=== PATIENT | male | born 1960 | race Caucasian/White ===

== ENCOUNTER 2017-05-16 09:01 | Inpatient (IN) | payer OTHER ==
[2017-04-11 16:06] VITALS: BMI 11.0
--- NOTE | 2017-05-15 11:53 | HISTORY & PHYSICAL EXAMINATION ---
DATE OF ADMISSION: 05/16/2017 CHIEF COMPLAINT: Right knee pain. HISTORY OF PRESENT ILLNESS: The patient is a 56-year-old gentleman with known osteoarthritis about his right knee. He had an old femur fracture which has contributed to his posttraumatic arthritis. He is an incarcerated individual. He has pain and disability with activities of daily living. He has pain with prolonged weightbearing and standing activities. Due to ongoing pain and disability, he desires to proceed with right total knee arthroplasty. PAST MEDICAL HISTORY: Second degree AV block, Mobitz type 2, cardiac pacemaker, hypertension, nicotine dependence, hyperlipidemia, COPD, obstructive sleep apnea. PAST SURGICAL HISTORY: Pacemaker placement. MEDICATIONS: Acetaminophen 325 mg 2 tablets 3 times daily p.r.n. Celecoxib 200 mg twice daily, lisinopril 20 mg daily, nitroglycerin 0.4 mg sublingual p.r.n. chest pain, pravastatin 20 mg at bedtime. ALLERGIES: No known drug allergies. SOCIAL HISTORY AND REVIEW OF SYSTEMS: Noncontributory. PHYSICAL EXAMINATION: GENERAL: Well-nourished, well-developed male who appears his stated age. HEENT: Normocephalic, atraumatic, extraocular movements intact, oropharynx pink and moist. NECK: Supple without adenopathy. LUNGS: Diminished heart sounds, otherwise clear. HEART: Regular rate and rhythm. He has a palpable pacemaker in the right subclavian region. ABDOMEN: Soft, nontender, nondistended. EXTREMITIES: The upper extremity within normal limits. The right knee has a varus alignment. He complains primarily of medial compartment pain. He has mild crepitus with range of motion. His range of motion from 0-120 degrees. X-RAYS: X-rays were reviewed. He has a varus-aligned knee. He has severe medial compartment arthritis with large osteophytes, bone on bone arthritis. He also has moderate to severe osteoarthritis about the right patellofemoral joint. ASSESSMENT: Right knee degenerative joint disease. PLAN: Risks versus benefits were discussed and consent was obtained. Will proceed with right total knee arthroplasty upon preoperative workup and medical clearance.
[~2017-05-16] VITALS: Ht 166.4 cm; Wt 116.0 kg
[2017-05-16] VITALS (7 sets, daily range): BP systolic 102–145; BP diastolic 58–92; PULSE 68–75; TEMP 34.8–37; O2SAT 94–98; Ht 166.4 cm; Wt 116.0 kg
--- NOTE | 2017-05-16 06:54 | History & Physical Bridge Note ---
H&P Re-Evaluation Bridge Note: I have examined the patient, reviewed the History & Physical and in the interval since the performance of the History & Physical I have noted the following changes of clinical significance: No changes noted
[~2017-05-16 09:01] MED LIST: ACET-1311 PO; ACETAMINOPHEN 500 MG TAB PO SCH; ASPI81TA28 PO; BUPIVACAINE 0.5 % 5 MG/1 ML PF 10ML VIAL ONE; BUPIVACAINE/EPINEPHRINE 0.25% 1:200,000 30 ML VIAL ONE; CEFAZOLIN 1000MG/55 ML D5W 55 ML IV SCH; CLB/200 PO; CeleBREX 200 MG CAP PO SCH; DEXAMETHASONE 4 MG TAB PO SCH; FAMOTIDINE 20 MG TAB PO SCH; GABAPENTIN 300 MG CAP PO SCH; LACTATED RINGER'S 1000ML 1,000 ML IV SCH; LACTATED RINGER'S 1000ML IV SCH; LACTATED RINGER'S 500 ML IV SCH; LISI20TA3 PO; METOCLOPRAMIDE HCL 10 MG TAB PO SCH; NTRSL3 UT; PRAV20TA PO; ROPIVACAINE 5MG/ML 30 ML 150 MG, BUPIVACAINE/EPINEPHR 0.5% MPF 30 ML, KETOROLAC TROMETH... INFIL SCH
[2017-05-16] MEDS ORDERED: ONDANSETRON INJ 2 MG/ML 2 ML VIAL IV PRN ×2 (10:00→15:00)
[2017-05-16] MEDS ORDERED: HYDROmorphone INJ 2 MG/ML SYR/VIAL IV PRN (10:00)
[2017-05-16] MEDS ORDERED: EpHEDrine SULFATE INJ 50 MG/ML AMP IV PRN (10:00)
[2017-05-16] MEDS ORDERED: LABETALOL HCL IV 5 MG/ML 20ML IV PRN (10:00)
[2017-05-16] MEDS ORDERED: PHENYLEPHRINE 100MCG/ML 5ML SYR IV PRN (10:00)
[2017-05-16] MEDS ORDERED: NALOXONE HCL 0.4 MG/1 ML VIAL/CARP IV PRN (10:00)
[2017-05-16] MEDS ORDERED: FENTANYL CITRATE INJ 50 MCG/1 ML 2 ML VIAL IV PRN (10:00)
[2017-05-16] MEDS ORDERED: MEPERIDINE HCL 25 MG/ML CARP IV PRN (10:00)
[2017-05-16] MEDS ORDERED: FLUMAZENIL 0.1 MG/1 ML 10 ML VIAL IV PRN (10:00)
[2017-05-16] MEDS ORDERED: ATROPINE SULFATE 0.1 MG/ML 5ML SYR IV PRN (10:00)
[2017-05-16] MEDS ORDERED: MIDAZOLAM HCL 1 MG/ML 2ML VIAL ONE (10:17)
[2017-05-16] MEDS ORDERED: POVIDONE-IODINE OP SOLN 30 ML BTL ONE (11:45)
[2017-05-16] MEDS ORDERED: BACITRACIN 50000 UNIT VIAL ONE (11:45)
[2017-05-16] MEDS ORDERED: KETAMINE HCL INJ 50 MG/ML 10 ML VIAL ONE (12:59)
[2017-05-16] MEDS ORDERED: CEFAZOLIN SOD 1 GM VIAL ONE (13:12)
[2017-05-16] MEDS ORDERED: PROPOFOL IV EMULSION 10 MG/ML 20 ML VIAL IV ONE ×5 (13:12→14:17)
[2017-05-16] MEDS ORDERED: LIDOCAINE HCL 2% 2 ML VIAL (20MG/ML) ONE (13:12)
[2017-05-16] MEDS ORDERED: SODIUM CHLORIDE 0.9% INJ 10 ML VIAL ONE (13:12)
--- NOTE | 2017-05-16 14:17 | [facility] Post Operative Brief Note ---
Immediate Operative Summary Operative Date May 16, 2017. Pre-Operative Diagnosis Right knee degenerative joint disease Post-Operative Diagnosis same Procedure(s) Performed Right Total Knee Arthroplasty Surgeon Dr. Riddle Branch General Manager Surgeon(s) Alexander Jiménez Pa-C Estimated Blood Loss 20 ML Findings severe djd Specimens A. right knee bone and tissue Complication(s) None Disposition Recovery Room / PACU
[2017-05-16] MEDS ORDERED: ALUMINUM/MAGNESIUM/SIMETH (MAALOX MAX) 30 ML UDC PO PRN (15:00)
[2017-05-16] MEDS ORDERED: METOCLOPRAMIDE HCL INJ 5 MG/ML 2 ML VIAL IV PRN (15:00)
[2017-05-16] MEDS ORDERED: ZOLPIDEM TARTRATE 5 MG TAB PO PRN (15:00)
[2017-05-16] MEDS ORDERED: NITROGLYCERIN 0.3 MG/1 TAB 100 TAB BTL UT PRN (15:00)
[2017-05-16] MEDS ORDERED: MAGNESIUM HYDROXIDE SUSP 30 ML UDC PO PRN (15:00)
[2017-05-16] MEDS ORDERED: TAMSULOSIN HCL 0.4 MG CAP PO PRN (15:00)
[2017-05-16] MEDS ORDERED: MoRPHine SULFATE 2 MG/ML CARP IV PRN (15:00)
--- NOTE | 2017-05-16 15:11 | DIAGNOSTIC IMAGING REPORT ---
RIGHT KNEE 1 OR 2 VIEWS ROUTINE CLINICAL HISTORY: Postop examination COMPARISON: None. DISCUSSION: There is an old healed femoral fracture. There are postsurgical changes of a total right knee arthroplasty with patellar resurfacing. The femoral and tibial components appear well seated. There are overlying skin mumtaz and surgical drains. There is air within soft tissues consistent with recent surgery. IMPRESSION: Postsurgical changes of a total right knee arthroplasty. Electronically signed by: Choco Colon M.D. 05/16/2017 3:09 PM Dictated Date/Time: 05/16/2017 3:08 PM
--- NOTE | 2017-05-16 15:40 | Anesthesiology Progress Note ---
Anesthesia Post Op Note Date & Time May 16, 2017 at 15:39 Vital Signs Pain Intensity: 0 Vital Signs Past 12 Hours Date Time Temp Pulse Resp B/P (MAP) Pulse Ox O2 Delivery O2 Flow Rate FiO2 05/16/17 15:30 36.8 68 16 110/64 96 Nasal Cannula 2 05/16/17 15:20 71 16 109/61 96 Nasal Cannula 2 05/16/17 15:10 72 16 106/72 96 Nasal Cannula 2 05/16/17 15:00 65 16 107/60 99 Mask 8 05/16/17 14:50 37.1 74 16 108/64 98 Mask 8 05/16/17 09:42 36.9 68 20 145/92 94 Room Air Notes Mental Status: alert / awake / arousable, participated in evaluation Pt Amnestic to Procedure: Yes Nausea / Vomiting: adequately controlled Pain: adequately controlled Airway Patency, RR, SpO2: stable & adequate BP & HR: stable & adequate Hydration State: stable & adequate Anesthetic Complications: no major complications apparent
--- NOTE | 2017-05-16 15:52 | OPERATIVE REPORT ---
DATE OF OPERATION: 05/16/2017 PREOPERATIVE DIAGNOSIS: Degenerative joint disease, right knee. POSTOPERATIVE DIAGNOSIS: Degenerative joint disease, right knee. PROCEDURE: OrthAlign, right total knee. ORTHALIGN INDICATION: Previous femoral malunion. SURGEON: Dr. Riddle. PERFORATOR TYPIST: Alexander Jiménez PA-C. ANESTHESIA: Spinal. COMPLICATIONS: None. OPERATION AND FINDINGS: Following induction of adequate spinal anesthesia, the patient's right leg was prepped and draped in usual sterile manner. The limb was exsanguinated with an Esmarch bandage and tourniquet was inflated to 350 mmHg. A longitudinal incision was made. Subcutaneous tissue was sharply dissected. Electrocautery was used for hemostasis as well as Aquamantys. Median parapatellar incision was made. The patella was everted and some fat pad was removed to aid in this eversion and the knee was flexed. The medial face of the tibia was cleared of soft tissue using electrocautery and then a Grigsby and blunt Hohmann was used to retract this. Next, the OrthWoofound tibial computer was attached to the anterior aspect of the femur and adjusted for posterior slope and varus-valgus tilt. Computer was utilized to set the proximal tibial cutting guide and the proximal tibia cut was made using an oscillating saw. This device was removed and the tibial fragment was removed in its entirety. Next, attention was turned to the femur where a spiral pin was placed just above, anterior to the intercondylar notch. The distal femoral cutting jig was placed with the computer and with the appropriate manipulation of varus-valgus and flexion-extension, the distal femoral cutting jig was pinned into position. Computer was removed and the distal femoral cut was made and an 11 mm distal cut was chosen as the patient had a preoperative flexion contracture. The femur was measured, a size 6 femur was chosen as the size to be used. The distal femoral cut was made using an oscillating saw with no notching. The intercondylar notch was prepared. Meniscal remnants were removed using forceps and a knife and Aquamantys was used to gain hemostasis posteriorly. A trial femoral component was impacted into position. Trial reduction was carried out and the size 11 tibial component was chosen the size to be used. The proximal tibia had been prepared using the punch. The trials were all removed. The patella was reamed and a 39 patella was chosen the size to be used. Prior to removal of the trials, knee was taken through a full range of motion and was found to be well centralized patella with no tendency for lateral subluxation. The joint mix was injected posteriorly as well as subperiosteally and pericapsularly and the wound was thoroughly irrigated with pulsatile irrigation. Cement was mixed. Components were cemented into position. All excess cement was removed. The knee was held in extension while cement hardened and the patellar clamp remained on the patella until cement hardened. The wound was irrigated one last time and Betadine soak was used prior to closure. Hemostasis was obtained after letting down the tourniquet and the wound was closed over a Hemovac using #1 Vicryl hgorup-wy-ytrli sutures, subcutaneous tissue was closed using 0 Dexon, skin was closed with mumtaz. Sterile dressing of Adaptic, 4x4s, and a Silverlon dressing was applied. The patient tolerated the procedure well. I attest to the content of the Intraoperative Record and any orders documented therein. Any exception s are noted below.
[2017-05-16] MEDS ORDERED: MoRPHine SULFATE 10 MG/ML CARP/VIAL IV PRN (17:00)
[2017-05-16] MEDS ORDERED: MoRPHine SULFATE 4 MG/ML 1 ML CARP\\VIAL IV PRN (17:00)
[2017-05-16] MEDS: D5W AND 1/2NSS + 20MEQ KCL 1,000 ML IV SCH (17:10)
[2017-05-16] MEDS: FERROUS GLUCONATE 324 MG TAB PO SCH (18:06)
[2017-05-16] MEDS: KETOROLAC TROMETHAMINE 30 MG/ML VIAL IV. SCH ×2 (18:09→23:22)
[2017-05-16 19:42] LABS: URINE APPEARANCE CLEAR (CLEAR); URINE BILIRUBIN NEG (NEG); URINE COLOR DK YELLOW; URINE NITRITE NEG (NEG); URINE PH 5.5 (4.5-7.5); URINE SPECIFIC GRAVITY 1.022 (1.000-1.030); UROBILINOGEN NEG (NEG)
[2017-05-16 19:43] LABS: MANUAL MICROSCOPIC REQUIRED? NO; REVIEW REQ? NO
[2017-05-16] MEDS: CEFAZOLIN IV 2,000 MG in DEXTROSE 5% 50ML 50 ML IV SCH (20:27)
[2017-05-16] MEDS: ASPIRIN 81 MG ECTAB PO SCH (20:33)
[2017-05-16] MEDS: DOCUSATE SODIUM 100 MG CAP PO SCH (20:33)
[2017-05-16] MEDS: PRAVASTATIN SOD 20 MG TAB PO SCH (20:33)
[2017-05-16] MEDS: OXYCODONE HCL 10 MG TABCR (OXYCONTIN) PO SCH (20:34)
[2017-05-16] MEDS: ACETAMINOPHEN 500 MG TAB PO SCH (22:21)
[2017-05-17] MEDS: D5W AND 1/2NSS + 20MEQ KCL 1,000 ML IV SCH (03:04)
[2017-05-17] MEDS: CEFAZOLIN IV 2,000 MG in DEXTROSE 5% 50ML 50 ML IV SCH (03:56)
[2017-05-17 04:15] VITALS: BP 102/62; PULSE 72; TEMP 36.8; O2SAT 98
[2017-05-17] MEDS: ACETAMINOPHEN 500 MG TAB PO SCH ×3 (05:40→21:17)
[2017-05-17] MEDS: KETOROLAC TROMETHAMINE 30 MG/ML VIAL IV. SCH ×2 (05:40→11:50)
[2017-05-17] MEDS ORDERED: DEXAMETHASONE INJ 10 MG in SYRINGE 0 ML IV SCH (07:30)
[2017-05-17 07:32] VITALS: BP 118/66; PULSE 66; TEMP 37.3; O2SAT 95
--- NOTE | 2017-05-17 07:50 | Orthopedic Progress Note ---
Orthopedic Progress Note Date of Service May 17, 2017. Subjective Post OP Day: 1 Reports: feeling well (Pt states hes unable to move his foot on operative side) Objective N/V intact, dressing C/D/I (Hemovac in place) Date Time Temp Pulse Resp B/P (MAP) Pulse Ox O2 Delivery O2 Flow Rate FiO2 05/17/17 04:15 36.8 72 16 102/62 (75) 98 Room Air 05/16/17 23:20 Room Air 05/16/17 23:19 36.9 72 16 107/58 (74) 97 Room Air 05/16/17 19:10 35.6 72 16 113/69 (84) 97 Room Air 05/16/17 18:00 36.4 75 17 112/69 (83) 96 Nasal Cannula 2.0 05/16/17 17:00 34.8 69 18 106/68 (81) 98 Nasal Cannula 05/16/17 16:29 36.4 70 16 102/67 (79) 96 Nasal Cannula 3.0 05/16/17 16:00 37.0 72 18 102/65 (77) 98 Nasal Cannula 2.0 05/16/17 16:00 Nasal Cannula 2.0 05/16/17 16:00 98 Nasal Cannula 2.0 05/16/17 15:30 36.8 68 16 110/64 96 Nasal Cannula 2 05/16/17 15:20 71 16 109/61 96 Nasal Cannula 2 05/16/17 15:10 72 16 106/72 96 Nasal Cannula 2 05/16/17 15:00 65 16 107/60 99 Mask 8 05/16/17 14:50 37.1 74 16 108/64 98 Mask 8 05/16/17 09:42 36.9 68 20 145/92 94 Room Air Laboratory Results 24 Hours: Test 05/17/17 04:44 Additional Notes: Labs pending Assessment & Plan Assessment: 56 yo male stable POD #1 s/p right TKA, temporary foot drop on operative side likely from intra-op injection Plan: 1. Med management 2. DVT prophylaxis- ASA, SCDs 3. PT/OT 4. D/C planning- return to [facility]
--- NOTE | 2017-05-17 07:52 | Discharge Instructions ---
Discharge Instructions Date of Service May 17, 2017. Admission Reason for Admission: Right Knee Osteoarthritis Discharge Discharge Diagnosis / Problem: Right knee arthritis Discharge Goals Goal(s): Decrease discomfort, Improve function Activity Recommendations Activity Limitations: as noted below Weightbearing Status: Right weightbearing (as tolerated) . Instructions / Follow-Up Instructions / Follow-Up ACTIVITY RECOMMENDATIONS: SELF CARE INSTRUCTIONS AFTER TOTAL KNEE REPLACEMENT A. You may need to continue a physical therapy program after discharge from the hospital. There are several options available to you. Your doctor will assist you in selecting the best one for you. 1. An out-patient facility 2 to 3 times a week for therapy or home therapy. 2. Continue working on all exercises taught to you in the hospital. Your goals should be to increase bending of your knee to 90 degrees and beyond and to fully straighten your knee. B. You may progress at your own pace from walking with a walker or crutches to a cane; then to no assistive devices. C. Make walking a part of your daily routine. Be up as much as comfortable with rest periods throughout the day. Rest with leg elevation is very important. Use the ice wrap frequently for the first 3-4 weeks. D. There are no restrictions on activities. You may ride in a car, shop, participate in process excellence manager and all social activities. E. Wear the long elastic stockings (MICHELA hose) 20 hours a day for 2 weeks after surgery. They can be removed several times a day for laundering and for a bath. F. You may shower, no tub baths until cleared by your doctor. SPECIAL CARE INSTRUCTIONS: VERY IMPORTANT TO READ AND REVIEW A. There are a few signs you need to watch for after you are home. Call [facility] if you notice any of the followin. Increased severe knee pain. Some pain is expected especially when you exercise. 2. Increased swelling in your leg or knee; pain or swelling of the calf muscle in either lower leg. 3. Any fluid drainage from the incision. 4. Shortness of breath or chest pain. B. Please call [facility] at if you have any concerns or questions about your operation or recovery. The doctor or his nurse will return your call promptly. C. You must take antibiotics before dental work, bladder, bowel or other surgery. Your doctor will provide you with a permanent care to carry describing this precaution. IMPORTANT: * REMEMBER TO TAKE ASPIRIN, 81 MG, TWICE DAILY FOR 4 WEEKS UNLESS OTHERWISE DIRECTED. THIS IS YOUR BLOOD THINNER. * HIGH RISK PATIENTS MAY BE PRESCRIBED A STRONGER BLOOD THINNER. THIS WILL BE PROVIDED AT DISCHARGE. * CALL IF INCREASED PAIN, REDNESS, DRAINAGE OR FEVER GREATER THAT 101. * WEAR MICHELA HOSE 20 HOURS PER DAY FOR 2 WEEKS. Silverlon- This is a large adhesive bandage that contains silver ions. This helps your incision heal by fighting off bacteria and protecting it from the outside environment. You are permitted to shower with this dressing. This will remain on your incision for 7 days and then should be removed. Some visible blood or drainage through the dressing window is normal. If there is significant drainage or leaking noted before the 7 days notify your doctor's office immediately. Once removed, keep incision clean and dry. If there is any drainage or redness noted, please call your surgeon. FOLLOW UP VISIT: If appointment is not already scheduled: Please call [facility] to make a follow-up appointment for 2 weeks after your surgery at . Current Hospital Diet Patient's current hospital diet: Regular Diet Discharge Diet Recommended Diet: Regular Diet Procedures Procedures Performed: Right Total Knee Arthroplasty Pending Studies Studies pending at discharge: no Medical Emergencies . Who to Call and When: Medical Emergencies: If at any time you feel your situation is an emergency, please call 911 immediately. . Non-Emergent Contact Non-Emergency issues call your: Surgeon Call Non-Emergent contact if: temperature is above 101.5, your pain is not controlled, your pain is worsening, wound has increased drainage . "Provider Documentation" section prepared by Alexander Jiménez PA-C. . VTE Core Measure Inpt VTE Proph given/why not?: Other Anticoagulation (ASA 81mg bid), T.E.DAftab Stockings, SCD's [place] Drug Monitoring Program Search Results: patient reviewed within database, no issues identified
[2017-05-17 08:09] LABS: HEMATOCRIT 34.1 % (42-52); MEAN CELL VOLUME 88.1 fL (80-100); MEAN CORPUSCULAR HEMOGLOBIN 29.7 pg (25-34); MEAN CORPUSCULAR HGB CONC 33.7 g/dl (32-36); MEAN PLATELET VOLUME 9.1 fL (7.4-10.4); PLATELET COUNT 270 K/uL (130-400); RED BLOOD COUNT 3.87 M/uL (4.7-6.1); WHITE BLOOD COUNT 26.54 K/uL (4.8-10.8)
--- NOTE | 2017-05-17 08:25 | Anesthesiology Progress Note ---
Anesthesia Post Op Note Date & Time May 17, 2017 at 08:22 Vital Signs Pain Intensity: 0.0 Vital Signs Past 12 Hours Date Time Temp Pulse Resp B/P (MAP) Pulse Ox O2 Delivery O2 Flow Rate FiO2 05/17/17 07:32 37.3 66 16 118/66 (83) 95 Room Air 05/17/17 07:10 Room Air 05/17/17 04:15 36.8 72 16 102/62 (75) 98 Room Air 05/16/17 23:20 Room Air 05/16/17 23:19 36.9 72 16 107/58 (74) 97 Room Air Notes Mental Status: alert / awake / arousable, participated in evaluation Pt Amnestic to Procedure: Yes Nausea / Vomiting: adequately controlled Pain: adequately controlled Airway Patency, RR, SpO2: stable & adequate BP & HR: stable & adequate Hydration State: stable & adequate Neuraxial Anesthesia: sensory block is resolving Anesthetic Complications: no major complications apparent Still has some residual nerve block....will discuss with PA and follow-up
[2017-05-17] MEDS: MULTIVITAMIN TAB PO SCH (08:45)
[2017-05-17] MEDS: LISINOPRIL 20 MG TAB PO SCH (08:45)
[2017-05-17] MEDS: ASPIRIN 81 MG ECTAB PO SCH ×2 (08:45→21:14)
[2017-05-17] MEDS: PANTOprazole SOD 40 MG TAB PO SCH (08:45)
[2017-05-17] MEDS: FERROUS GLUCONATE 324 MG TAB PO SCH ×3 (08:45→18:42)
[2017-05-17] MEDS: DOCUSATE SODIUM 100 MG CAP PO SCH ×2 (08:46→21:00)
[2017-05-17 08:51] LABS: CALCIUM 7.7 mg/dl (8.5-10.1)
[2017-05-17] MEDS: OXYCODONE HCL 10 MG TABCR (OXYCONTIN) PO SCH ×2 (08:51→21:14)
[2017-05-17 09:02] LABS: BUN/CREATININE RATIO 16.3 (10-20); CREATININE 0.81 mg/dl (0.60-1.40); POTASSIUM 4.9 mmol/L (3.5-5.1)
[2017-05-17 11:15] VITALS: BP 127/65; PULSE 65; TEMP 36.7; O2SAT 98
[2017-05-17 15:45] VITALS: BP 110/67; PULSE 74; TEMP 36.8; O2SAT 97
--- NOTE | 2017-05-17 15:47 | Progress Note ---
Subjective Date of Service: May 17, 2017. Subjective pt is here s/p right tka, has history of significant tobacco abuse and requests nicotine patch, he also states he is short of breath at his baseline and exhibits this at rest during our interview. he has a non productive cough each morning and states 8 years ago he was "borderline" in regards to pft's for COPD , since that time he has smoked daily Review of Systems Constitutional: + fatigue, No fever, No chills, No weakness Respiratory: + cough, + shortness of breath, + dyspnea on exertion Cardiac: No chest pain, No edema Abdomen: No pain, No nausea, No vomiting, No diarrhea Musculoskeletal: + joint pain, + muscle pain, No calf pain Male : No dysuria, No urinary frequency Psychiatric: No depression symptoms, No anhedonism Endo: No fatigue, No excessive thirst Objective Vital Signs Date Time Temp Pulse Resp B/P (MAP) Pulse Ox O2 Delivery O2 Flow Rate FiO2 05/17/17 07:32 37.3 66 16 118/66 (83) 95 Room Air 05/17/17 07:10 Room Air 05/17/17 04:15 36.8 72 16 102/62 (75) 98 Room Air 05/16/17 23:20 Room Air 05/16/17 23:19 36.9 72 16 107/58 (74) 97 Room Air 05/16/17 19:10 35.6 72 16 113/69 (84) 97 Room Air 05/16/17 18:00 36.4 75 17 112/69 (83) 96 Nasal Cannula 2.0 05/16/17 17:00 34.8 69 18 106/68 (81) 98 Nasal Cannula 05/16/17 16:29 36.4 70 16 102/67 (79) 96 Nasal Cannula 3.0 05/16/17 16:00 37.0 72 18 102/65 (77) 98 Nasal Cannula 2.0 05/16/17 16:00 Nasal Cannula 2.0 05/16/17 16:00 98 Nasal Cannula 2.0 05/16/17 15:30 36.8 68 16 110/64 96 Nasal Cannula 2 05/16/17 15:20 71 16 109/61 96 Nasal Cannula 2 05/16/17 15:10 72 16 106/72 96 Nasal Cannula 2 05/16/17 15:00 65 16 107/60 99 Mask 8 6/15/17 14:50 37.1 74 16 108/64 98 Mask 8 05/16/17 09:42 36.9 68 20 145/92 94 Room Air Physical Exam General Appearance: WD/WN, + mild distress Eyes: PERRL, EOMI Neck: supple, no JVD Respiratory/Chest: chest non-tender, + decreased breath sounds, + accessory muscle use Cardiovascular: regular rate, rhythm, no murmur Abdomen: normal bowel sounds, non tender, soft Extremities: no pedal edema, no calf tenderness Neurologic/Psychiatric: alert, oriented x 3 Skin: normal color, warm/dry, no rash Laboratory Results Last 24 Hours Test 05/17/17 07:58 White Blood Count 26.54 K/uL Red Blood Count 3.87 M/uL Hemoglobin 11.5 g/dL Hematocrit 34.1 % Mean Corpuscular Volume 88.1 fL Mean Corpuscular Hemoglobin 29.7 pg Mean Corpuscular Hemoglobin Concent 33.7 g/dl RDW Standard Deviation 41.0 fL RDW Coefficient of Variation 12.7 % Platelet Count 270 K/uL Mean Platelet Volume 9.1 fL Calcium Level 7.7 mg/dl Assessment and Plan 56 M with TKA, history of pacemaker and copd cardiovascular, continue zestril and pravachol, watching for hypotension pt takes tamsulosin follow for post op BPH symptoms pulmonary status shows baseline shortness of breath add Combivent and although counselled smoking cessation will add nicotine patch aspirin bid for dvt prevention
--- NOTE | 2017-05-17 16:30 | Anesthesiology Progress Note ---
Anesthesia Progress Note Date of Service May 17, 2017. Progress Notes The patient was reevaluated with Dr. Harding. The patient continues to have complete numbness and weakness below the R knee. On exam the patient has full movement and sensation in the L leg as well as the R thigh above the knee. He has urinated multiple times today with no incontinence. He has no new back pain or discomfort. He was numb to ice around the R calf including the medial and lateral aspect. He was unable to plantarflex or dorsiflex his R foot. I spoke to Jhon Jiménez from the ortho service and he will speak with Dr. Riddle about the patient. I spoke to Dr. Sterling as well about the patient. The patient is unlikely to have a spinal hematoma, but due to the continued numbness, an MRI has been ordered to rule that out. The patient will have a CXR to make sure his pacemaker leads are in place (his pacemaker is MRI compatible as per the MRI service). Assuming the MRI is normal, this along with the physical exam rules out the anesthetic as the cause of his foot weakness and numbness.
--- NOTE | 2017-05-17 16:42 | DIAGNOSTIC IMAGING REPORT ---
CHEST ONE VIEW PORTABLE CLINICAL HISTORY: Check pacer leads for MRI COMPARISON STUDY: No previous studies for comparison. FINDINGS: An anterior cervical spine fusion is incidentally noted. There is a dual lead right pacemaker. Leads are intact. This reflects an MRI compatible pacemaker. Mild to moderate cardiomegaly is noted. No evidence of pulmonary edema. IMPRESSION: 1. No acute cardiopulmonary findings. 2. Dual lead right subclavian MRI compatible pacemaker. 3. Mild to moderate cardiomegaly. Electronically signed by: Ray Dixon M.D. 05/17/2017 4:41 PM Dictated Date/Time: 05/17/2017 4:37 PM
[2017-05-17] MEDS: IPRATROPIUM BROMIDE/ALBUTEROL respimat INH INH SCH ×3 (17:00→21:17)
[2017-05-17] MEDS ORDERED: GADAVIST IV PRN (18:15)
[2017-05-17] MEDS: NICOTINE 21 MG/24 HR TDSY TD SCH (18:35)
--- NOTE | 2017-05-17 18:58 | DIAGNOSTIC IMAGING REPORT ---
LUMBAR SPINE MRI WITH AND WITHOUT CONTRAST HISTORY: Right leg numbness/weakness following surgery r/o spinal hematoma TECHNIQUE: Multiplanar multisequence MRI of the lumbar spine was performed both before and after the intravenous administration of contrast. COMPARISON: None. FINDINGS: For the purpose of the report the L5-S1 disc space will be located on axial image 23 of 25. No fracture or subluxation. Disc spaces are preserved. The conus terminates at the L1-L2 disc space level. Cutaneous edema within the lumbar region. Mild facet osteoarthritis at L4-L5. Moderate facet osteoarthritis at L5-S1. There is mild motion artifact. This is most pronounced on the postcontrast sequences. No definite abnormal enhancement within the lumbar spine. No epidural or paraspinal fluid collections. There is suggestion of prior L5 laminectomy. L1-L2: No significant central canal or neural foraminal narrowing. L2-L3: No significant central canal or neural foraminal narrowing. L3-L4: No significant central canal or neural foraminal narrowing. L4-L5: No significant central canal or neural foraminal narrowing. L5-S1: Small broad-based posterior disc bulge without significant central canal narrowing. There is mild bilateral neural foraminal narrowing primarily due to the facet hypertrophy. IMPRESSION: 1. Motion artifact. However, no definite epidural fluid collections identified. 2. No significant central canal narrowing. 3. Mild bilateral neural foraminal narrowing at L5-S1. Electronically signed by: Aldair Gary M.D. 05/17/2017 6:57 PM Dictated Date/Time: 05/17/2017 6:47 PM
[2017-05-17] MEDS: OXYCODONE HCL IR 5 MG TAB (IMMEDIATE RELEASE) PO PRN (19:33)
[2017-05-17] MEDS: PRAVASTATIN SOD 20 MG TAB PO SCH (21:15)
[2017-05-17] MEDS: CeleBREX 200 MG CAP PO SCH (21:15)
[2017-05-17 23:12] VITALS: BP 151/65; PULSE 78; TEMP 36.7; O2SAT 97
[2017-05-18] MEDS: ACETAMINOPHEN 500 MG TAB PO SCH ×2 (05:14→13:40)
[2017-05-18 07:44] VITALS: BP 136/82; PULSE 63; TEMP 36.4; O2SAT 96
--- NOTE | 2017-05-18 08:43 | Orthopedic Progress Note ---
Orthopedic Progress Note Date of Service May 18, 2017. Subjective Post OP Day: 2 Reports: feeling well, pain controlled w PO medications, Denies: complaints, chest pain, SOB, nausea / vomiting, light headedness, calf pain Objective calves soft nontender, N/V intact, capillary refill less than 2 sec., dressing C /D/I, A&O x3, toes mobile Date Time Temp Pulse Resp B/P (MAP) Pulse Ox O2 Delivery O2 Flow Rate FiO2 05/18/17 07:44 36.4 63 19 136/82 (100) 96 Room Air 05/17/17 23:45 Room Air 05/17/17 23:12 36.7 78 19 151/65 (93) 97 Room Air 05/17/17 15:45 Room Air 05/17/17 15:45 36.8 74 17 110/67 (81) 97 Room Air 05/17/17 11:15 36.7 65 16 127/65 (85) 98 Room Air Assessment & Plan Assessment: 56 yo male stable POD #2 s/p right TKA Plan: 1. Med management 2. DVT prophylaxis- ASA, SCDs 3. PT/OT 4. D/C planning- return to [facility] Planning Pain Management: Celebrex, Oxycontin, PO Tylenol Discharge Planning Discharge Planning: other (return to halfway)
--- NOTE | 2017-05-18 08:51 | Progress Note ---
Subjective Date of Service: May 18, 2017. Subjective pt is stable for discharge Objective Vital Signs Date Time Temp Pulse Resp B/P (MAP) Pulse Ox O2 Delivery O2 Flow Rate FiO2 05/18/17 07:44 36.4 63 19 136/82 (100) 96 Room Air 05/17/17 23:45 Room Air 05/17/17 23:12 36.7 78 19 151/65 (93) 97 Room Air 05/17/17 15:45 Room Air 05/17/17 15:45 36.8 74 17 110/67 (81) 97 Room Air 05/17/17 11:15 36.7 65 16 127/65 (85) 98 Room Air Assessment and Plan 56 M with TKA, history of pacemaker and copd cardiovascular, bp controlled with zestril and pravachol, BPH symptoms stable post op on tamsulosin copd likely, improved after adding Combivent and counselled smoking cessation, nicotine patch aspirin bid for dvt prevention
[2017-05-18] MEDS: OXYCODONE HCL 10 MG TABCR (OXYCONTIN) PO SCH (08:57)
[2017-05-18] MEDS: OXYCODONE HCL IR 5 MG TAB (IMMEDIATE RELEASE) PO PRN (08:57)
[2017-05-18] MEDS: FERROUS GLUCONATE 324 MG TAB PO SCH ×2 (08:58→13:41)
[2017-05-18] MEDS: LISINOPRIL 20 MG TAB PO SCH (08:58)
[2017-05-18] MEDS: DOCUSATE SODIUM 100 MG CAP PO SCH (08:58)
[2017-05-18] MEDS: ASPIRIN 81 MG ECTAB PO SCH (08:59)
[2017-05-18] MEDS: NICOTINE 21 MG/24 HR TDSY TD SCH (08:59)
[2017-05-18] MEDS: MULTIVITAMIN TAB PO SCH (08:59)
[2017-05-18] MEDS: PANTOprazole SOD 40 MG TAB PO SCH (08:59)
[2017-05-18] MEDS: IPRATROPIUM BROMIDE/ALBUTEROL respimat INH INH SCH ×2 (08:59→13:41)
[2017-05-18] MEDS: CeleBREX 200 MG CAP PO SCH (08:59)
[2017-05-18] MEDS ORDERED: ASPEC81 PO (10:36)
--- NOTE | 2017-05-18 11:58 | Progress Note ---
Progress Note Date of Service May 18, 2017. Progress Note Anesthesia followup POD#2. Patient was evaluated yesterday for persistent numbness and weak dorsiflexion of the foot by the anesthesiologist institution librarian. MRI was obtained to r/o spinal hematoma which was negative. Today on interview the patient claims that he is getting sensation back to his operative lower extremity and still has "only a little bit of tingling" across his toes. On exam the patient has equal dorsi and plantar flexion bilaterally. He also has normal sensorum to cold temperature to the medial and lateral leg, dorsal, medial, and lateral foot. I reiterated to the patient that we suspect his deficit, now resolved, to be due to intrarticular injection of local anesthetic providing a significant block of the tibial nerve. As he is now fully intact and has done physical therapy without fall or feeling as though he may fall, he does not need any sort of neurology follow up.
[2017-05-18 13:33] VITALS: BP 136/82; PULSE 63; TEMP 36.4; O2SAT 96
[2017-05-18] MEDS ORDERED: IPRA1AER2 INH (14:57)
--- NOTE | 2017-05-22 13:36 | DISCHARGE SUMMARY ---
CHIEF COMPLAINT: Right knee pain. Please see complete history and physical examination. HOSPITAL COURSE: The patient underwent right total knee arthroplasty without complication. He tolerated the procedure well and was discharged to recovery room in stable condition. His postoperative course was relatively uneventful. His postoperative pain was reasonably well controlled with a combination of spinal anesthesia, intraoperative joint injection, IV, and oral pain medications. A medical consult was asked for to assist in his postoperative medical management. Of note, the patient did have some postoperative complaints of numbness and inability to move the foot and ankle for a period of time postoperative. Anesthesia evaluated him as well and order a lumbar spine MRI to rule out a spinal hematoma or other lumbar spine pathology. The MRI was normal. We reiterated to the patient that this can happen due to the intraoperative joint injection. This all resolved by postoperative day 2 and his feeling and motion were normal. He was started on aspirin for DVT prophylaxis. He also utilized MICHELA stockings and SCDs for additional prophylaxis. His H&H was stable and not require transfusion. His surgical drain was discontinued by postop day 2, surgical dressing will remain in place for approximately 7 days postoperative. He tolerated postop physical therapy reasonably well as he was bending his knee and ambulating appropriately. He was discharged back to the longterm on postoperative day 2. He will continue his physical therapy there. He will continue his aspirin for DVT prophylaxis and follow up in our office in approximately 10-14 days for his initial postop evaluation.
--- NOTE | 2017-06-20 13:47 | OPERATIVE REPORT ---
DATE OF OPERATION: 05/16/2017 ADDENDUM: LAW FIRM RECEPTIONIST: Alexander Jiménez PA-C. Mr. Jiménez was essential through all the case including all phases including positioning, prepping, draping, surgical services director, wound closure, and dressing application. I attest to the content of the Intraoperative Record and any orders documented therein. Any exception s are noted below.
== END 2017-05-18 15:01 | DRG 470 ==
LOC: C.ACU 09:01 → C.3E 09:32 → ENRESERV 15:23
PROC: XR2G021 Monitoring of Right Knee Joint using Intraoperative Knee Replacement Sensor, Open Approach, New Technology Group 1 (ICD-10-PCS; principal; 2017-05-16 11:30)
PROC: 0SRC0J9 Replacement of Right Knee Joint with Synthetic Substitute, Cemented, Open Approach (ICD-10-PCS; principal; 2017-05-16 11:30)
DX: M17.11 Unilateral primary osteoarthritis, right knee (principal); Z68.41 Body mass index [BMI] 40.0-44.9, adult; I44.2 Atrioventricular block, complete; F17.210 Nicotine dependence, cigarettes, uncomplicated; I10 Essential (primary) hypertension; E78.5 Hyperlipidemia, unspecified; I44.1 Atrioventricular block, second degree; J44.9 Chronic obstructive pulmonary disease, unspecified; G47.33 Obstructive sleep apnea (adult) (pediatric); N40.0 Benign prostatic hyperplasia without lower urinary tract symptoms; E66.01 Morbid (severe) obesity due to excess calories; B18.2 Chronic viral hepatitis C; R06.09 Other forms of dyspnea; E78.00 Pure hypercholesterolemia, unspecified; M21.371 Foot drop, right foot; R20.0 Anesthesia of skin; M54.2 Cervicalgia; M54.5 Low back pain; R01.1 Cardiac murmur, unspecified; Z87.81 Personal history of (healed) traumatic fracture; Z95.0 Presence of cardiac pacemaker; Z79.1 Long term (current) use of non-steroidal anti-inflammatories (NSAID); Z79.899 Other long term (current) drug therapy